=== PATIENT | female | born 1935 | race Caucasian/White ===

== ENCOUNTER 2017-06-17 07:15 | Day surgery (SDC) | payer OTHER, MEDICARE, MEDICAID ==
[~2017-06-17] VITALS: Ht 167.6 cm; Wt 68.5 kg
[2017-06-17 08:13] VITALS: BP 141/52; PULSE 82; RESP 20; TEMP 97.8; O2SAT 97
[2017-06-17] MEDS ORDERED: CLOP75TA PO (08:18)
[2017-06-17] MEDS ORDERED: PENT400T PO (08:18)
[2017-06-17] MEDS ORDERED: VITA2000 PO (08:18)
[2017-06-17] MEDS ORDERED: METF500T PO (08:18)
[2017-06-17] MEDS ORDERED: FENO160T PO (08:18)
[2017-06-17] MEDS ORDERED: RAMI10CA PO (08:18)
[2017-06-17] MEDS ORDERED: ROSU1TAB10 PO (08:18)
[2017-06-17] MEDS ORDERED: VITA100021 SL (08:18)
--- NOTE | 2017-06-17 08:24 | EKG ---
Date Performed: 06/17/2017 Time Performed: 07:58:56 PTAGE: 81 years EKG: Sinus rhythm NONSPECIFIC T-WAVE ABNORMALITY BORDERLINE ECG NO PREVIOUS TRACING DOCTOR: Darrius Bragg Interpretating Date/Time 06/17/2017 08:24:32
[2017-06-17] MEDS ORDERED: LACTATED RINGER'S 1000 ML IV PRN (08:30)
[2017-06-17] MEDS ORDERED: CHLORHEXIDINE GLUCONATE 4% SOLN 120 ML BTL TOPICAL SCH (08:30)
[2017-06-17] MEDS ORDERED: POVIDONE IODINE 5% (ANTISEPSIS KIT) 4 APPLICATIONS EACH NARE PRN (08:30)
[2017-06-17] MEDS ORDERED: CHLORHEXIDINE GLUCONATE 2 % 1 PACK (2 CLOTHS) TOPICAL PRN (08:30)
[2017-06-17] MEDS ORDERED: METOPROLOL TARTRATE 25 MG TAB PO PRN (08:30)
[2017-06-17] MEDS ORDERED: SODIUM CHLORID 0.9% 500 ML IV PRN (08:30)
== END 2017-06-17 09:14 | disposition home or self-care (01) ==
LOC: UNDOADMIN 07:15 → HSDC 07:15 → HSDI 07:15 → HSDC 09:14 → UNDODISIN 09:14 → EDSTATUS 10:00
PROVIDERS: ATTEND Orthopaedic Surgery Orthopaedic Surgery of the Spine
DX: Z53.09 Procedure and treatment not carried out because of other contraindication (principal); Z01.810 Encounter for preprocedural cardiovascular examination
CPT/HCPCS: 93005; G0463; 99211

== ENCOUNTER 2017-06-19 10:17 | Inpatient (IN) | payer OTHER, MEDICAID, MEDICARE ==
[~2017-06-19] VITALS: Ht 167.6 cm; Wt 65.8 kg
[~2017-06-19 10:17] MED LIST: CLOP75TA PO; FENO160T PO; METF500T PO; PENT400T PO; RAMI10CA PO; ROSU1TAB10 PO; VITA100021 SL; VITA2000 PO
[2017-06-19] MEDS ORDERED: POVIDONE IODINE 5% (ANTISEPSIS KIT) 4 APPLICATIONS EACH NARE PRN (11:30)
[2017-06-19] MEDS ORDERED: LACTATED RINGER'S 1000 ML IV PRN (11:30)
[2017-06-19] MEDS ORDERED: METOPROLOL TARTRATE 25 MG TAB PO PRN (11:30)
[2017-06-19] MEDS ORDERED: CHLORHEXIDINE GLUCONATE 2 % 1 PACK (2 CLOTHS) TOPICAL PRN (11:30)
[2017-06-19] MEDS ORDERED: SODIUM CHLORID 0.9% 500 ML IV PRN (11:30)
[2017-06-19] MEDS ORDERED: CHLORHEXIDINE GLUCONATE 4% SOLN 120 ML BTL TOPICAL SCH (11:30)
[2017-06-19] MEDS ORDERED: LIDOCAINE HCL 1% PF 5 ML SYRINGE OTHER ONE (12:00)
[2017-06-19] MEDS ORDERED: LABETALOL HCL 100 MG/20 ML VIAL IV ONE (12:00)
[2017-06-19] MEDS ORDERED: ONDANSETRON HCL 4 MG/2 ML VIAL IV ONE (12:00)
[2017-06-19] MEDS ORDERED: PROPOFOL 200 MG/20 ML AMP IV ONE (12:00)
[2017-06-19] MEDS ORDERED: GENTAMICIN SULFATE 80 MG/2 ML VIAL ONE (12:52)
[2017-06-19] MEDS ORDERED: VANCOMYCIN HCL 1000 MG VIAL ONE (13:55)
[2017-06-19 14:09] LABS: AUTOMATED NEUTROPHIL # 6.1 TH/MM3 (1.8-7.7); BASOPHIL # 0.1 TH/MM3 (0-0.2); BASOPHIL % 0.9 % (0.0-2.0); EOSINOPHIL # 0.1 TH/MM3 (0-0.4); EOSINOPHIL % 1.6 % (0.0-4.0); HEMATOCRIT 34.3 % (35.0-46.0); HEMOGLOBIN 11.2 GM/DL (11.6-15.3); LYMPH % 21.2 % (9.0-44.0); LYMPHOCYTE # 1.8 TH/MM3 (1.0-4.8); MEAN CELL VOLUME 79.1 FL (80.0-100.0); MEAN CORPUSCULAR HEMOGLOBIN 25.7 PG (27.0-34.0); MEAN CORPUSCULAR HGB CONC 32.6 % (32.0-36.0); MEAN PLATELET VOLUME 7.5 FL (7.0-11.0); MONO % 6.3 % (0.0-8.0); MONOCYTE # 0.5 TH/MM3 (0-0.9); PLATELET COUNT 356 TH/MM3 (150-450); RED BLOOD COUNT 4.34 MIL/MM3 (4.00-5.30); WHITE BLOOD COUNT 8.7 TH/MM3 (4.0-11.0)
[2017-06-19] MEDS ORDERED: PIPERACIL-TAZO 3.375 GM PREMIX 50 ML IV ONE (14:15)
[2017-06-19 14:29] LABS: CALCIUM 9.8 MG/DL (8.5-10.1); CREATININE 0.9 MG/DL (0.50-1.00)
--- NOTE | 2017-06-19 15:25 | HHI.PR ---
cc: Sana Graves MD Immediate Post Op Note Procedure Date: June 19, 2017 Pre Op Diagnosis: Right BKA infection with wound dehiscence Post Op Diagnosis: same Surgeon: Sana Graves Boat Repairer(s): Estela Varela Procedure: Right below-knee amputation irrigation and debridement Right below-knee amputation revision Application of incisional vac Complications: None Specimen(s) removed: Multiple cultures and specimens sent to microbiology and pathology Estimated blood loss: 50 cc Anesthesia: General Drains: Hemovac, Other (Incisional vac) IVF Patient to: PACU Patient Condition: Good Implant/Devices: SEE IMPLANT LOG (if applicable) Date/Time of Procedure: SEE SURGICAL CARE RECORD Sana Graves MD June 19, 2017 15:25
[2017-06-19] MEDS ORDERED: DO NOT ADM ANY ANTICOAGULANT DRUGS PRN (15:27)
[2017-06-19] MEDS ORDERED: ONDANSETRON HCL 4 MG/2 ML VIAL IVP PRN (15:30)
[2017-06-19] MEDS ORDERED: Post-op Orders (for Pharmacy) XX ONE (15:30)
[2017-06-19] MEDS ORDERED: diphenhydrAMINE HCL 25 MG CAP PO PRN (15:30)
[2017-06-19] MEDS ORDERED: LACTULOSE SYRUP 20 GM/30 ML CUP PO PRN (15:30)
[2017-06-19] MEDS ORDERED: SODIUM CHLORIDE 0.9% FLUSH 10 ML FLUSH IV FLUSH PRN (15:30)
[2017-06-19] MEDS ORDERED: MAGNESIUM HYDROXIDE SUSP 30 ML CUP PO PRN (15:30)
[2017-06-19] MEDS ORDERED: BISACODYL 10 MG SUPP RECTAL PRN (15:30)
[2017-06-19] MEDS ORDERED: Vancomycin Consult Pharmacy 1 EA OTHER SCH (15:30)
[2017-06-19] MEDS ORDERED: MORPHINE SULFATE 4 MG/ML INJ IV PUSH PRN (15:30)
[2017-06-19] MEDS ORDERED: SENNOSIDES 8.6 MG TAB PO PRN (15:30)
[2017-06-19] MEDS ORDERED: MORPHINE SULFATE 4 MG/ML INJ ONE (15:40)
[2017-06-19] MEDS ORDERED: *morphine SULFATE 4 MG/ML PERIprocedure ONLY ONE ×3 (15:42→15:59)
[2017-06-19] MEDS ORDERED: KETOROLAC TROMETHAMINE 30 MG/ML (IVP) VIAL ONE (16:09)
[2017-06-19] MEDS ORDERED: ACETAMINOPHEN 1000 MG/100 ML 100 ML IV ONE (16:20)
[2017-06-19] MEDS ORDERED: *LABETALOL HCL 100 MG/20 ML VIAL PERIprocedural Use ONLY ONE ×2 (16:33→17:19)
[2017-06-19] MEDS ORDERED: *HYDROmorphone PF 0.5 MG/0.5 ML PERIprocedure ONLY ONE ×2 (16:43→17:09)
[2017-06-19 18:00] VITALS: BP 140/59; PULSE 75; RESP 18; TEMP 97.8; O2SAT 98
[2017-06-19] MEDS ORDERED: HYDR-3366 PO (18:54)
[2017-06-19 20:21] VITALS: O2SAT 98
[2017-06-19 20:40] VITALS: BP 151/64; PULSE 71; RESP 17; TEMP 97.4; O2SAT 100
[2017-06-19] MEDS: DOCUSATE SODIUM 50 MG/SENNA 8.6 MG TAB PO SCH (21:00)
[2017-06-19] MEDS: SODIUM CHLORIDE 0.9% FLUSH 10 ML FLUSH IV FLUSH SCH (21:20)
[2017-06-20 00:30] VITALS: BP 180/75; PULSE 99; RESP 18; TEMP 99.8; O2SAT 99
[2017-06-20 01:40] VITALS: BP 176/79
[2017-06-20] MEDS ORDERED: cloNIDine HCL 0.1 MG TAB PO ONE (02:15)
[2017-06-20] MEDS: ENOXAPARIN SODIUM 40 MG/0.4 ML SYRINGE SQ SCH (03:53)
[2017-06-20 04:00] LABS: HEMATOCRIT 31.2 % (35.0-46.0); HEMOGLOBIN 10.1 GM/DL (11.6-15.3)
[2017-06-20 04:55] VITALS: BP 157/67; PULSE 95; RESP 20; TEMP 100.2; O2SAT 97
[2017-06-20] MEDS: MULTIVITAMINS/MINERALS THERAPEUTIC TAB PO SCH (08:49)
[2017-06-20] MEDS: DOCUSATE SODIUM 50 MG/SENNA 8.6 MG TAB PO SCH ×2 (08:49→22:09)
[2017-06-20] MEDS: SODIUM CHLORIDE 0.9% FLUSH 10 ML FLUSH IV FLUSH SCH ×2 (08:51→22:09)
--- NOTE | 2017-06-20 10:13 | PD.CONS ---
HPI Service [facility] Consult Requested By Dr Graves Reason for Consult Medical management. Primary Care Physician Non-Staff Diagnoses: History of Present Illness This is an 81-year-old white female with past medical history of peripheral vascular disease, diabetes, hypertension, hyperlipidemia, COPD. 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 The patient subsequently developed dehiscence of the wound and underwent incision and debridement on 06/19. As per medical records the patient developed MRSA at the time on those were cultures. Apparently attempts were made to get her on IV antibiotics as an outpatient but that was not initiated. The patient was noted to have a nonhealing wound with drainage continued and she was admitted to the hospital, and there went incision and drainage on 05/20 and culture was taken again. The right below the knee amputation was revised and wound incisional VAC was applied to the wound. Patient was noted to have a temp of 100.2, prior to that the patient has been a febrile. The patient is awake and alert, provides adequate history however seems to be a poor historian. Patient completed a course of Bactrim approximately 3 weeks ago for a wound on the lateral aspect of the left foot. The patient is being followed by barrel line operator to put her on Bactrim. Apparently the patient's son noticed that there was a blister that appeared at the base of the foot near the third toe, dorsal aspect. The patient was noted to have some necrosis of the area when the drainage was occurring and some necrotic muscle was debrided as well. Review of Systems As per HPI,other systems reviewed by me and negative. Past Family Social History Allergies: Coded Allergies: Penicillins (Verified Allergy, Severe, RASH, ITCHING, 06/18/17) adhesive tape (Verified Allergy, Severe, Blisters, 06/19/17) nabumetone (Verified Allergy, Severe, Rash, 06/18/17) oxycodone (Verified Allergy, Severe, AGITATION, COMBATIVE, 06/18/17) tramadol (Verified Allergy, Severe, COMBATIVE, 06/18/17) Uncoded Allergies: PLASTIC TAPE (Allergy, Severe, BLISTERS, 06/17/17) Past Medical History 1. Peripheral vascular disease 2. HTN 3. HLD 4. DM type 2 5. COPD Past Surgical History 1. SP Right BKA. 2. Status post right femoropopliteal bypass and status post left iliac stent. Reported Medications Reported Meds & Active Scripts Active Reported Mio (Hydrocodone-Acetaminophen) 10-325 Mg Tab 1 Tab PO Q4H PRN Vitamin D3 (Cholecalciferol) 2,000 Unit Cap 2,000 Units PO TU. AND FRI. Vitamin B-12 (Cyanocobalamin) 1,000 Mcg Subl 2,500 Mcg SL EVERY OTHER DAY Rosuvastatin (Rosuvastatin Calcium) 40 Mg Tab 40 Mg PO DAILY Fenofibrate 160 Mg Tab 160 Mg PO DAILY Pentoxifylline ER (Pentoxifylline) 400 Mg Tab 400 Mg PO BID Metformin (Metformin HCl) 500 Mg Tab 500 Mg PO DAILY Clopidogrel (Clopidogrel Bisulfate) 75 Mg Tab 75 Mg PO DAILY Ramipril 10 Mg Cap 20 Mg PO DAILY Active Ordered Medications Current Medications Medications (Trade) Dose Ordered Sig/Yeison Route Start Time Stop Time Status Last Admin Lactated Ringer's 1,000 ml @ 30 mls/hr Q24H PRN IV 06/19/17 11:30 06/22/17 11:29 06/19/17 11:15 Sodium Chloride 500 ml @ 30 mls/hr [id number] PRN IV 06/19/17 11:30 06/22/17 11:29 (Lopressor) 25 mg REVENUE ANALYST PRN PO 06/19/17 11:30 06/22/17 11:29 (Betadine 5% Antisepsis Kit) 1 applic REVENUE ANALYST PRN EACH NARE 06/19/17 11:30 06/22/17 11:29 06/19/17 11:20 (Chlorhexidine 2% Cloth) 3 pack REVENUE ANALYST PRN TOPICAL 06/19/17 11:30 06/22/17 11:29 06/19/17 11:00 (Hibiclens 4% Top Soln) 1 applic ONCE TOPICAL 06/19/17 11:30 06/22/17 11:29 06/19/17 11:15 (NS Flush) 2 ml UNSCH PRN IV FLUSH 06/19/17 15:30 (NS Flush) 2 ml BID IV FLUSH 06/19/17 21:00 06/20/17 08:51 (Lovenox Inj) 40 mg Q24H SQ 06/20/17 03:30 06/20/17 03:53 Pharmacy Profile Note 0 ml @ 0 mls/hr UNSCH OTHER 06/19/17 15:30 (Morphine Inj) 2 mg Q4H PRN IV PUSH 06/19/17 15:30 (Zofran Inj) 4 mg Q4H PRN IVP 06/19/17 15:30 (Theragran M Tab) 1 tab DAILY PO 06/20/17 09:00 (Benadryl) 25 mg Q6H PRN PO 06/19/17 15:30 (Sona-Colace) 1 tab BID PO 06/19/17 21:00 (Milk Of Magnesia Liq) 30 ml Q12H PRN PO 06/19/17 15:30 (Senokot) 17.2 mg Q12H PRN PO 06/19/17 15:30 (Dulcolax Supp) 10 mg DAILY PRN RECTAL 06/19/17 15:30 (Lactulose Liq) 30 ml DAILY PRN PO 06/19/17 15:30 Vancomycin HCl 1000 mg/Sodium Chloride 250 ml @ 250 mls/hr Q24H IV 06/20/17 14:00 06/20/17 15:08 ([facility] Ordered Lab Info) SPECIFIC LAB TO BE DRAWN:VANCOMYCIN TROUGH DATE TO... ONCE ONCE .XX 06/22/17 13:45 06/22/17 13:46 (Vitamin D3) 2,000 units DAILY PO 06/21/17 09:00 (Vitamin B12) 2,500 mcg DAILY PO 06/21/17 09:00 (TRENtal SR) 400 mg BID PO 06/20/17 21:00 (Tricor) 145 mg DAILY PO 06/21/17 09:00 (Altace) 20 mg DAILY PO 06/20/17 11:00 06/20/17 11:14 (Lipitor) 80 mg DAILY PO 06/20/17 11:00 06/20/17 11:15 (Mio 5-325 Mg) 2 tab Q6H PRN PO 06/20/17 11:15 06/20/17 12:36 Family History The patient denies any diabetes or heart disease in her family. Social History Patient smokes half a pack per day. Denies alcohol use. Denies illicit drug use. 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 Physical Exam Vital Signs Vital Signs Date Time Temp Pulse Resp B/P (MAP) Pulse Ox O2 Delivery O2 Flow Rate FiO2 06/20/17 04:55 100.2 95 20 157/67 (97) 97 06/20/17 01:40 176/79 (111) 06/20/17 00:30 99.8 99 18 180/75 (110) 99 06/19/17 20:40 97.4 71 17 151/64 (93) 100 06/19/17 20:21 98 Nasal Cannula 2.00 06/19/17 18:00 97.8 75 18 140/59 (86) 98 06/19/17 17:30 98.1 73 14 173/72 (105) 97 Nasal Cannula 2 06/19/17 17:15 74 16 141/64 (89) 97 Nasal Cannula 2 06/19/17 17:00 75 16 187/78 (114) 98 Nasal Cannula 2 06/19/17 16:45 80 22 188/80 (116) 96 Nasal Cannula 2 06/19/17 16:30 80 15 204/78 (120) 99 Nasal Cannula 2 06/19/17 16:15 83 20 196/83 (120) 98 Nasal Cannula 2 06/19/17 16:00 79 14 178/77 (110) 98 Nasal Cannula 2 06/19/17 15:45 78 16 177/74 (108) 98 Nasal Cannula 2 06/19/17 15:30 75 16 161/69 (99) 98 Nasal Cannula 2 06/19/17 15:28 98.3 76 15 186/72 (110) 98 Nasal Cannula 2 06/19/17 11:12 98.8 88 20 141/57 (85) 98 Physical Exam GENERAL: This is a well-nourished, well-developed patient, in no apparent distress. SKIN: No rashes, ecchymoses or lesions. Cool and dry. HEAD: Atraumatic. Normocephalic. No temporal or scalp tenderness. EYES: Pupils equal round and reactive. Extraocular motions intact. No scleral icterus. No injection or drainage. ENT: Nose without bleeding, purulent drainage or septal hematoma. Throat without erythema, tonsillar hypertrophy or exudate. Uvula midline. Airway patent. NECK: Trachea midline. No JVD or lymphadenopathy. Supple, nontender, no meningeal signs. CARDIOVASCULAR: Regular rate and rhythm without murmurs, gallops, or rubs. RESPIRATORY: Clear to auscultation. Breath sounds equal bilaterally. No wheezes , rales, or rhonchi. GASTROINTESTINAL: Abdomen soft, non-tender, nondistended. No hepato-splenomegaly , or palpable masses. No guarding. MUSCULOSKELETAL: Right BKA with wound vac in place. NEUROLOGICAL: Awake and alert. Cranial nerves II through XII intact. Motor and sensory grossly within normal limits. Five out of 5 muscle strength in all muscle groups. Normal speech. Laboratory Laboratory Tests Test 06/19/17 13:50 06/20/17 03:45 White Blood Count 8.7 Red Blood Count 4.34 Hemoglobin 11.2 10.1 Hematocrit 34.3 31.2 Mean Corpuscular Volume 79.1 Mean Corpuscular Hemoglobin 25.7 Mean Corpuscular Hemoglobin Concent 32.6 Red Cell Distribution Width 16.0 Platelet Count 356 Mean Platelet Volume 7.5 Neutrophils (%) (Auto) 70.0 Lymphocytes (%) (Auto) 21.2 Monocytes (%) (Auto) 6.3 Eosinophils (%) (Auto) 1.6 Basophils (%) (Auto) 0.9 Neutrophils # (Auto) 6.1 Lymphocytes # (Auto) 1.8 Monocytes # (Auto) 0.5 Eosinophils # (Auto) 0.1 Basophils # (Auto) 0.1 CBC Comment DIFF FINAL Differential Comment Blood Urea Nitrogen 22 Creatinine 0.90 Random Glucose 125 Calcium Level 9.8 Sodium Level 139 Potassium Level 4.2 Chloride Level 105 Carbon Dioxide Level 27.0 Anion Gap 7 Estimat Glomerular Filtration Rate 60 Date/Time Source Procedure Growth Status 06/19/17 14:10 Wound Leg Fungal Smear - Final NO FUNGAL ELEMENTS SEEN. Resulted 06/19/17 14:10 Wound Leg Fungal Culture Pending Resulted Result Diagram: 06/20/17 4945 06/19/17 7230 Assessment and Plan Problem List: (1) Amputation stump infection ICD Code: T87.40 - Infection of amputation stump, unspecified extremity Plan: The patient has a right BKA infection with wound dehiscence. The patient status post right ujjfe-wzy-vlrl amputation irrigation and debridement, right below the knee amputation revision and application of incisional VAC. ID consulted. Continue IV antibiotics as per infectious disease. The patient currently on IV vancomycin. Pertinent cultures: The patient is growing MRSA on wound culture. (2) Diabetes ICD Code: E11.9 - Type 2 diabetes mellitus without complications Plan: Placed on SSI with insulin NovoLog. Monitor Accu-Cheks. Hold metformin while patient hospitalized. Check hemoglobin A1c if this is has not been done within the last 3 months. (3) HTN (hypertension) ICD Code: I10 - Essential (primary) hypertension Plan: Patient initially severely elevated. Continue outpatient home medications which include ramipril 20 mg p.o. daily. Monitor vital signs. (4) Hyperlipidemia ICD Code: E78.5 - Hyperlipidemia, unspecified Plan: Continue fenofibrate and rosuvastatin. (5) PVD (peripheral vascular disease) ICD Code: I73.9 - Peripheral vascular disease, unspecified Plan: On pentoxifylline. Continue Plavix. (6) Sepsis ICD Code: A41.9 - Sepsis, unspecified organism Plan: Patient meets sepsis criteria with low-grade fever and heart rate more than 90. Continue IV antibiotics as per ID recommendations. Assessment and Plan DVT prophylaxis: Lovenox subcutaneously. Discussed Condition With Patient. Problem Qualifiers (1) Diabetes: Qualified Codes: E11.52 - Type 2 diabetes mellitus with diabetic peripheral angiopathy with gangrene (2) HTN (hypertension): Qualified Codes: I10 - Essential (primary) hypertension (3) Hyperlipidemia: Qualified Codes: E78.5 - Hyperlipidemia, unspecified Waylon Roberts MD June 20, 2017 10:13
[2017-06-20] MEDS: RAMIPRIL 5 MG CAP PO SCH (11:14)
--- NOTE | 2017-06-20 11:14 | PD.ORT.PN ---
Subjective Subjective Remarks Patient resting comfortably. Refusing to take BP meds due to different color pills than at home. Objective Vitals Vital Signs Date Time Temp Pulse Resp B/P (MAP) Pulse Ox O2 Delivery O2 Flow Rate FiO2 06/20/17 04:55 100.2 95 20 157/67 (97) 97 06/20/17 01:40 176/79 (111) 06/20/17 00:30 99.8 99 18 180/75 (110) 99 06/19/17 20:40 97.4 71 17 151/64 (93) 100 06/19/17 20:21 98 Nasal Cannula 2.00 06/19/17 18:00 97.8 75 18 140/59 (86) 98 06/19/17 17:30 98.1 73 14 173/72 (105) 97 Nasal Cannula 2 06/19/17 17:15 74 16 141/64 (89) 97 Nasal Cannula 2 06/19/17 17:00 75 16 187/78 (114) 98 Nasal Cannula 2 06/19/17 16:45 80 22 188/80 (116) 96 Nasal Cannula 2 06/19/17 16:30 80 15 204/78 (120) 99 Nasal Cannula 2 06/19/17 16:15 83 20 196/83 (120) 98 Nasal Cannula 2 06/19/17 16:00 79 14 178/77 (110) 98 Nasal Cannula 2 06/19/17 15:45 78 16 177/74 (108) 98 Nasal Cannula 2 06/19/17 15:30 75 16 161/69 (99) 98 Nasal Cannula 2 06/19/17 15:28 98.3 76 15 186/72 (110) 98 Nasal Cannula 2 06/19/17 11:12 98.8 88 20 141/57 (85) 98 I/O 06/19/17 06/19/17 06/19/17 06/20/17 06/20/17 06/20/17 07:00 15:00 23:00 07:00 15:00 23:00 Intake Total 850 ml 360 ml Output Total 50 ml 0 ml Balance 800 ml 360 ml Intake Oral 0 ml 360 ml IV Total 100 ml Other 750 ml Output Drainage Total 0 ml 0 ml Estimated Blood Loss 50 ml # Voids 0 4 # Bowel Movements 0 Result Diagram: 06/20/17 0345 06/19/17 1350 Objective Remarks Awake, alert, NAD RLE: dressing in place. HV in place. Incisional vac with good seal. Assessment & Plan Assessment and Plan 81yo F POD#1 s/p R BKA I&D, revision amputation, placement incisional VAC 1. Dressing to remain in place until Friday. I will remove incisional VAC friday morning to assess wound 2. KI to R BKA when in bed to prevent contractures 3. ID consulted. On Vancomycin given previous MRSA wound cultures 06/09. Patient does have small wounds developing on left toes. Patient's prior authorization nurse is Dr. Alegria who reportedly does not come to [place]. 4. Lovenox for DVT ppx. Ok to restart Plavix if medicine feels appropriate 5. Mobilize as tolerated with assistance Sana Graves MD June 20, 2017 11:14
[2017-06-20] MEDS: ATORVASTATIN 80 MG TAB PO SCH (11:15)
[2017-06-20 12:00] VITALS: BP 120/53; PULSE 79; RESP 18; TEMP 98.1; O2SAT 96
--- NOTE | 2017-06-20 12:26 | MB ---
cc: William Holguin MD DATE: 06/20/2017 REQUESTING PHYSICIAN: Dr. Sana Graves. REASON FOR VISIT: Right BKA infected wound. HISTORY OF PRESENT ILLNESS: This is an 81-year-old white female who has a history of right below the knee amputation because of gangrene in 02/2017. The patient subsequently developed dehiscence of the wound and underwent incision and debridement on 06/09 and a culture was taken and the culture showed MRSA. Attempts were made to get her on IV antibiotics as outpatient and this was not yet initiated. She was noted to have nonhealing wound with drainage continue and she was admitted to the hospital and she underwent I and D on 05/20 and a culture was taken as well. The right below the knee amputation was revised and wound incisional VAC was applied to the wound. The patient had a temperature of 100.2 degrees this morning. Prior to that, she was afebrile. Her white count is normal at 8.7. The Gram stain from the wound yesterday has gram-positive cocci in pairs. The patient is awake and alert. She is able to provide adequate history. Her son is also at bedside and he assisted in information on her previous care. The patient completed a course of Bactrim approximately 3 weeks ago for a wound on the lateral aspect of the left foot. She is followed by a die cutter diamond who put her on the Bactrim for 2 weeks. Her son noticed that there was a blister that appeared at the base of the foot near the third toe, dorsal aspect. The patient was noted to have some necrosis at the area where the drainage was occurring and some necrotic muscle was debrided as well. PAST MEDICAL HISTORY: Hypercholesterolemia, peripheral vascular disease, COPD, and diabetes mellitus type 2. PAST SURGICAL HISTORY: Status post right fem-pop bypass and status post left iliac stent. ALLERGIES: 1. TRAMADOL. 2. OXYCODONE. 3. NABUMETONE. 4. PENICILLIN. 5. ADHESIVE TAPE. 6. PLASTIC TAPE. The patient's record notes that she is allergic to acetaminophen. however, the patient denies allergy to acetaminophen. MEDICATIONS: 1. Vancomycin 2. Pentoxifylline, 3. Tricor. 4. Vitamin B12. 5. Vitamin D3. 6. Lipitor. 7. Altace. 8. Theragran. 9. Lovenox. 10. Sona-Colace. SOCIAL HISTORY: The patient smokes about 10 cigarettes a day. Denies alcohol use. Denies substance abuse. 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 FAMILY HISTORY: Noncontributory. REVIEW OF SYSTEMS: Significant for mild pain in the right and leg. Otherwise, negative on a 10-point review. PHYSICAL EXAMINATION: GENERAL: She is a well-developed female who is in no acute distress. She is awake and alert and oriented. VITAL SIGNS: Temperature 100.2, blood pressure 157/67, respirations 20, heart rate 95. HEENT: Head is atraumatic. Extraocular movements grossly intact. Pupils reactive to light. No icterus. Oropharynx: Moist mucosa. No visible lesions. NECK: Supple, no adenopathy. LUNGS: Clear breath sounds. HEART: Regular S1, S2. I/ systolic ejection murmur at the left sternal border. ABDOMEN: Bowel sounds present, soft, nontender. RECTAL: Not performed. EXTREMITIES: The right leg is wrapped in a surgical dressing. There is serosanguineous drainage coming via the Hemovac. The left foot has healed ulcerations at the lateral aspect of the foot near the fifth toe and also at the dorsal aspect of the third toe. There is no erythema and the skin is dry. SKIN: No diffuse rash. NEUROLOGIC: Nonfocal. PSYCHIATRIC: The patient is calm and pleasant and cooperative. She appears a little fidgety. LABORATORY DATA: WBC 8.7, platelets 356, hemoglobin 10.1. Creatinine 0.90. Estimated GFR 60. Sodium 139. IMPRESSION: 1. Infected wound of the right kywcw-tkw-fahz stump. Recent culture with methicillin-resistant Staphylococcus aureus. 2. The patient is status post incision and drainage and revision of the right sartv-dkim-ccdjtlngth stump. New culture pending. 3. Low grade fever. 4. Diabetes mellitus. RECOMMENDATIONS: 1. Continue vancomycin. 2. Monitor the wound culture obtained on 06/19/2017 to determine if antibiotic needs to be adjusted. 3. Pharmacy to continue managing the vancomycin. 4. Remove acetaminophen as an allergy, since the patient states that she is not allergic to that medication and therefore she should be able to receive oxycodone. 5. Monitor the temperature. The plan is to observe the patient in the hospital over the weekend and determine whether or not she will need continuation of the VAC. She will require a course of IV antibiotics. If the culture has MRSA, we will certainly need to continue the vancomycin and monitor response. Because of the problems with nonhealing, she will require the vancomycin for approximately 4 weeks treatment. Thank you for this consultation. I will monitor about her progress and will make further recommendations upon followup. MD KASSIE Tempel/ROBERT , 11:43 AM , 12:26 PM BETO
[2017-06-20] MEDS: ACETAMINOPHEN/HYDROcodone 325 MG/5 MG TAB PO PRN (12:36)
[2017-06-20] MEDS: VANCOMYCIN 1,000 MG/NS 250 ML IV SCH ×2 (15:08)
[2017-06-20 20:00] VITALS: BP 132/60; PULSE 76; RESP 18; TEMP 97.8; O2SAT 95
[2017-06-20] MEDS: PENTOXIFYLLINE 400 MG CONTROLLED RELEASE TAB PO SCH (22:09)
[2017-06-21] VITALS (7 sets, daily range): BP systolic 139–170; BP diastolic 53–74; PULSE 88–99; RESP 16–18; TEMP 97.7–99.3; O2SAT 91–94
[2017-06-21] MEDS: ENOXAPARIN SODIUM 40 MG/0.4 ML SYRINGE SQ SCH (03:30)
[2017-06-21 04:22] LABS: AUTOMATED NEUTROPHIL # 9.2 TH/MM3 (1.8-7.7); BASOPHIL % 0.4 % (0.0-2.0); EOSINOPHIL % 0.1 % (0.0-4.0); HEMATOCRIT 30.4 % (35.0-46.0); HEMOGLOBIN 9.9 GM/DL (11.6-15.3); LYMPH % 6.2 % (9.0-44.0); LYMPHOCYTE # 0.6 TH/MM3 (1.0-4.8); MEAN CELL VOLUME 78.3 FL (80.0-100.0); MEAN CORPUSCULAR HEMOGLOBIN 25.5 PG (27.0-34.0); MEAN CORPUSCULAR HGB CONC 32.6 % (32.0-36.0); MEAN PLATELET VOLUME 7.7 FL (7.0-11.0); MONO % 3.5 % (0.0-8.0); MONOCYTE # 0.4 TH/MM3 (0-0.9); NEUT % 89.8 % (16.0-70.0); PLATELET COUNT 273 TH/MM3 (150-450); RED BLOOD COUNT 3.89 MIL/MM3 (4.00-5.30); RED CELL DISTRIBUTION WIDTH 15.7 % (11.6-17.2); WHITE BLOOD COUNT 10.2 TH/MM3 (4.0-11.0)
[2017-06-21 04:37] LABS: ALBUMIN 2.8 GM/DL (3.4-5.0); ALKALINE PHOSPHATASE 71 U/L (45-117); ALT (GPT) 37 U/L (10-53); AST (GOT) 53 U/L (15-37); BICARBONATE 26.1 MEQ/L (21.0-32.0); BLOOD UREA NITROGEN 35 MG/DL (7-18); CALCIUM 9.3 MG/DL (8.5-10.1); CHLORIDE 102 MEQ/L (98-107); CREATININE 1.16 MG/DL (0.50-1.00); GLOMERULAR FILTRATION RATE 45 ML/MIN (>89); GLUCOSE,RANDOM 131 MG/DL (74-106); MAGNESIUM 1.7 MG/DL (1.5-2.5); PHOSPHORUS 2.9 MG/DL (2.5-4.9); SODIUM (NA) 138 MEQ/L (136-145); TOTAL BILIRUBIN ADULT 0.3 MG/DL (0.2-1.0); TOTAL PROTEIN 6.7 GM/DL (6.4-8.2)
--- NOTE | 2017-06-21 08:00 | PD.ORT.PN ---
Subjective Subjective Remarks POD 2 s/p revision right BKA patient complains that vac pump is uncomfortable Objective Vitals Vital Signs Date Time Temp Pulse Resp B/P (MAP) Pulse Ox O2 Delivery O2 Flow Rate FiO2 06/21/17 04:00 97.8 90 18 166/74 (104) 94 06/21/17 00:00 98.4 88 18 144/65 (91) 94 06/20/17 20:00 97.8 76 18 132/60 (84) 95 06/20/17 13:36 17 06/20/17 12:00 98.1 79 18 120/53 (75) 96 I/O 06/20/17 06/20/17 06/20/17 06/21/17 06/21/17 06/21/17 07:00 15:00 23:00 07:00 15:00 23:00 Intake Total 360 ml 240 ml Output Total 0 ml Balance 360 ml 240 ml Intake Oral 360 ml 240 ml Output Drainage Total 0 ml # Voids 4 5 # Bowel Movements 0 1 Result Diagram: 06/21/17 0400 06/21/17 0400 Objective Remarks Awake, alert, NAD RLE: dressing in place. vac in place. Incisional vac with good seal. knee brace at bedside. knee contracture developing Assessment & Plan Assessment and Plan 81yo F POD#2 s/p R BKA I&D, revision amputation, placement incisional VAC 1. Dressing to remain in place until Friday. Dr Graves will remove incisional VAC friday morning to assess wound 2. CKS to R BKA when in bed to prevent contractures --> patient not wearing and needs to be reapplied 3. ID consulted. On Vancomycin given previous MRSA wound cultures 06/09. Patient does have small wounds developing on left toes. Patient's chief of party is Dr. Alegria who reportedly does not come to [place]. 4. Lovenox for DVT ppx. Ok to restart Plavix if medicine feels appropriate 5. Mobilize as tolerated with assistance 6. DC drain today Ochoa Irving/Program Director Group Work DOMENIC June 21, 2017 07:59
[2017-06-21] MEDS: RAMIPRIL 5 MG CAP PO SCH (09:59)
[2017-06-21] MEDS: CYANOCOBALAMIN 1,000 MCG TAB PO SCH (09:59)
[2017-06-21] MEDS: CHOLECALCIFEROL (VIT D3) 1000 UNIT TAB PO SCH (10:00)
[2017-06-21] MEDS: ATORVASTATIN 80 MG TAB PO SCH (10:01)
[2017-06-21] MEDS: DOCUSATE SODIUM 50 MG/SENNA 8.6 MG TAB PO SCH ×2 (10:01→20:25)
[2017-06-21] MEDS: FENOFIBRATE 145 MG TAB PO SCH (10:01)
[2017-06-21] MEDS: MULTIVITAMINS/MINERALS THERAPEUTIC TAB PO SCH (10:01)
[2017-06-21] MEDS: SODIUM CHLORIDE 0.9% FLUSH 10 ML FLUSH IV FLUSH SCH ×2 (10:52→20:25)
[2017-06-21] MEDS: PENTOXIFYLLINE 400 MG CONTROLLED RELEASE TAB PO SCH ×2 (10:52→20:25)
[2017-06-21] MEDS: VANCOMYCIN 1,000 MG/NS 250 ML IV SCH ×2 (14:44)
[2017-06-21] MEDS ORDERED: PILL SPLITTER OTHER PRN (15:00)
--- NOTE | 2017-06-21 15:04 | HHI.PR ---
Subjective Remarks Pain controlled, denies diarrhea denies cp/sob Objective Vitals Vital Signs Date Time Temp Pulse Resp B/P (MAP) Pulse Ox O2 Delivery O2 Flow Rate FiO2 06/21/17 12:00 97.7 89 16 139/65 (89) 93 06/21/17 09:23 92 21 06/21/17 08:00 97.8 91 17 170/71 (104) 94 06/21/17 04:00 97.8 90 18 166/74 (104) 94 06/21/17 00:00 98.4 88 18 144/65 (91) 94 06/20/17 20:00 97.8 76 18 132/60 (84) 95 I/O 06/20/17 06/20/17 06/20/17 06/21/17 06/21/17 06/21/17 07:00 15:00 23:00 07:00 15:00 23:00 Intake Total 360 ml 240 ml Output Total 0 ml Balance 360 ml 240 ml Intake Oral 360 ml 240 ml Output Drainage Total 0 ml # Voids 4 5 # Bowel Movements 0 1 Result Diagram: 06/21/17 0400 06/21/17 0400 Objective Remarks GENERAL: This is a well-nourished, well-developed patient, in no apparent distress. SKIN: No rashes, ecchymoses or lesions. Cool and dry. HEAD: Atraumatic. Normocephalic. No temporal or scalp tenderness. EYES: Pupils equal round and reactive. Extraocular motions intact. No scleral icterus. No injection or drainage. ENT: Nose without bleeding, purulent drainage or septal hematoma. Throat without erythema, tonsillar hypertrophy or exudate. Uvula midline. Airway patent. NECK: Trachea midline. No JVD or lymphadenopathy. Supple, nontender, no meningeal signs. CARDIOVASCULAR: Regular rate and rhythm without murmurs, gallops, or rubs. RESPIRATORY: Clear to auscultation. Breath sounds equal bilaterally. No wheezes , rales, or rhonchi. GASTROINTESTINAL: Abdomen soft, non-tender, nondistended. No hepato-splenomegaly , or palpable masses. No guarding. MUSCULOSKELETAL: Right BKA with wound vac in place. NEUROLOGICAL: Awake and alert. Cranial nerves II through XII intact. Motor and sensory grossly within normal limits. Five out of 5 muscle strength in all muscle groups. Normal speech. A/P Problem List: (1) Amputation stump infection ICD Code: T87.40 - Infection of amputation stump, unspecified extremity Plan: The patient has a right BKA infection with wound dehiscence. The patient status post right eyhbw-rav-thdz amputation irrigation and debridement, right below the knee amputation revision and application of incisional VAC. ID consulted. Continue IV antibiotics as per infectious disease. The patient currently on IV vancomycin. Pertinent cultures: The patient is growing MRSA on wound culture. 06/21 Dr Graves to evaluate wound on friday. Continue IV antibiotics as per ID recommendations. (2) Diabetes ICD Code: E11.9 - Type 2 diabetes mellitus without complications Plan: Placed on SSI with insulin NovoLog. Monitor Accu-Cheks. Hold metformin while patient hospitalized. Check hemoglobin A1c if this is has not been done within the last 3 months. (3) HTN (hypertension) ICD Code: I10 - Essential (primary) hypertension Plan: Patient initially severely elevated. Continue outpatient home medications which include ramipril 20 mg p.o. daily. Monitor vital signs. (4) Hyperlipidemia ICD Code: E78.5 - Hyperlipidemia, unspecified Plan: Continue fenofibrate and rosuvastatin. (5) PVD (peripheral vascular disease) ICD Code: I73.9 - Peripheral vascular disease, unspecified Plan: On pentoxifylline. Continue Plavix. (6) Sepsis ICD Code: A41.9 - Sepsis, unspecified organism Plan: Patient meets sepsis criteria with low-grade fever and heart rate more than 90. Continue IV antibiotics as per ID recommendations. Problem Qualifiers (1) Diabetes: Qualified Codes: E11.52 - Type 2 diabetes mellitus with diabetic peripheral angiopathy with gangrene (2) HTN (hypertension): Qualified Codes: I10 - Essential (primary) hypertension (3) Hyperlipidemia: Qualified Codes: E78.5 - Hyperlipidemia, unspecified (4) Sepsis: Qualified Codes: A41.02 - Sepsis due to methicillin resistant Staphylococcus aureus Waylon Roberts MD June 21, 2017 15:04
[2017-06-21] MEDS: SODIUM CHLOR 0.9% 1000 ML INJ 1,000 ML IV SCH ×2 (17:33→23:42)
[2017-06-22] VITALS: BP 163/70; PULSE 88; RESP 16; TEMP 98.2; O2SAT 94
[2017-06-22] MEDS: ENOXAPARIN SODIUM 40 MG/0.4 ML SYRINGE SQ SCH (03:22)
[2017-06-22 08:00] VITALS: BP 159/67; PULSE 88; RESP 17; TEMP 97.7; O2SAT 95
[2017-06-22] MEDS: DOCUSATE SODIUM 50 MG/SENNA 8.6 MG TAB PO SCH ×2 (09:00→20:24)
[2017-06-22] MEDS: SODIUM CHLORIDE 0.9% FLUSH 10 ML FLUSH IV FLUSH SCH ×2 (09:00→20:24)
--- NOTE | 2017-06-22 09:35 | PD.ORT.PN ---
Subjective Subjective Remarks POD 3 s/p revision right BKA patient complains that vac pump is uncomfortable Objective Vitals Vital Signs Date Time Temp Pulse Resp B/P (MAP) Pulse Ox O2 Delivery O2 Flow Rate FiO2 06/22/17 00:00 98.2 88 16 163/70 (101) 94 06/21/17 20:00 99.1 99 16 152/53 (86) 92 06/21/17 16:00 99.3 91 16 155/69 (97) 91 06/21/17 12:00 97.7 89 16 139/65 (89) 93 I/O 06/21/17 06/21/17 06/21/17 06/22/17 06/22/17 06/22/17 07:00 15:00 23:00 07:00 15:00 23:00 Intake Total 240 ml 480 ml 800 ml Output Total 600 ml 5 ml Balance 240 ml -120 ml 795 ml Intake Oral 240 ml 480 ml IV Total 800 ml Output Urine Total 600 ml Stool Total 5 ml # Voids 5 5 # Bowel Movements 1 0 Result Diagram: 06/21/17 0400 06/21/17 0400 Objective Remarks Awake, alert, NAD RLE: dressing in place. vac in place. Incisional vac with good seal. knee brace at bedside. knee contracture developing Assessment & Plan Assessment and Plan 81yo F POD#3 s/p R BKA I&D, revision amputation, placement incisional VAC 1. Dressing to remain in place until Friday. Dr Graves will remove incisional VAC friday morning to assess wound 2. CKS to R BKA when in bed to prevent contractures --> patient not wearing and needs to be reapplied 3. ID consulted. On Vancomycin given previous MRSA wound cultures 06/09. Patient does have small wounds developing on left toes. Patient's architectural intern is Dr. Alegria who reportedly does not come to [place]. 4. Lovenox for DVT ppx. Ok to restart Plavix if medicine feels appropriate 5. Mobilize as tolerated with assistance 6. DC drain today Ochoa Irving/User Experience Architect DOMENIC June 22, 2017 09:35
[2017-06-22] MEDS: CYANOCOBALAMIN 1,000 MCG TAB PO SCH (11:14)
[2017-06-22] MEDS: CHOLECALCIFEROL (VIT D3) 1000 UNIT TAB PO SCH (11:15)
[2017-06-22] MEDS: FENOFIBRATE 145 MG TAB PO SCH (11:15)
[2017-06-22] MEDS: MULTIVITAMINS/MINERALS THERAPEUTIC TAB PO SCH (11:15)
[2017-06-22] MEDS: PENTOXIFYLLINE 400 MG CONTROLLED RELEASE TAB PO SCH ×2 (11:15→20:24)
[2017-06-22] MEDS: RAMIPRIL 5 MG CAP PO SCH (11:15)
[2017-06-22] MEDS: ATORVASTATIN 80 MG TAB PO SCH (11:17)
[2017-06-22 12:00] VITALS: BP 141/61; PULSE 90; RESP 16; TEMP 97.9; O2SAT 96
[2017-06-22 12:58] LABS: HEMATOCRIT 27.9 % (35.0-46.0); HEMOGLOBIN 9.1 GM/DL (11.6-15.3); MEAN CELL VOLUME 78.9 FL (80.0-100.0); MEAN CORPUSCULAR HEMOGLOBIN 25.7 PG (27.0-34.0); MEAN CORPUSCULAR HGB CONC 32.5 % (32.0-36.0); MEAN PLATELET VOLUME 8.1 FL (7.0-11.0); PLATELET COUNT 254 TH/MM3 (150-450); RED BLOOD COUNT 3.53 MIL/MM3 (4.00-5.30); RED CELL DISTRIBUTION WIDTH 15.2 % (11.6-17.2); WHITE BLOOD COUNT 7.4 TH/MM3 (4.0-11.0)
[2017-06-22 13:25] LABS: ALBUMIN 2.4 GM/DL (3.4-5.0); ALT (GPT) 26 U/L (10-53); AST (GOT) 34 U/L (15-37); BICARBONATE 26.8 MEQ/L (21.0-32.0); BLOOD UREA NITROGEN 23 MG/DL (7-18); CALCIUM 8.9 MG/DL (8.5-10.1); CHLORIDE 106 MEQ/L (98-107); CREATININE 0.94 MG/DL (0.50-1.00); GLOMERULAR FILTRATION RATE 57 ML/MIN (>89); GLUCOSE,RANDOM 280 MG/DL (74-106); SODIUM (NA) 141 MEQ/L (136-145)
[2017-06-22 13:25] LABS: HEMOGLOBIN A1C 7.1 % (4.3-6.0)
[2017-06-22 13:37] LABS: ALKALINE PHOSPHATASE 67 U/L (45-117); TOTAL BILIRUBIN ADULT 0.2 MG/DL (0.2-1.0); TOTAL PROTEIN 6.2 GM/DL (6.4-8.2)
[2017-06-22] MEDS ORDERED: PHARMACY ORDERED LAB ONE (13:45)
[2017-06-22 15:12] LABS: VANCOMYCIN TROUGH 9.5 MCG/ML (5.0-10.0)
[2017-06-22 16:00] VITALS: BP 166/67; PULSE 87; RESP 17; TEMP 99.3; O2SAT 94
--- NOTE | 2017-06-22 16:53 | HHI.PR ---
Subjective Remarks Blood pressure noted to be elevated into the 150s 160s systolic. The patient denies chest pain or shortness of breath. Pain controlled. Denies diarrhea, nausea, vomiting or abdominal pain. Objective Vitals Vital Signs Date Time Temp Pulse Resp B/P (MAP) Pulse Ox O2 Delivery O2 Flow Rate FiO2 06/22/17 12:00 97.9 90 16 141/61 (87) 96 06/22/17 08:00 97.7 88 17 159/67 (97) 95 06/22/17 00:00 98.2 88 16 163/70 (101) 94 06/21/17 20:00 99.1 99 16 152/53 (86) 92 I/O 06/21/17 06/21/17 06/21/17 06/22/17 06/22/17 06/22/17 07:00 15:00 23:00 07:00 15:00 23:00 Intake Total 240 ml 480 ml 800 ml Output Total 600 ml 5 ml Balance 240 ml -120 ml 795 ml Intake Oral 240 ml 480 ml IV Total 800 ml Output Urine Total 600 ml Stool Total 5 ml # Voids 5 5 # Bowel Movements 1 0 Result Diagram: 06/22/17 1230 06/22/17 1230 Objective Remarks GENERAL: This is a well-nourished, well-developed patient, in no apparent distress. SKIN: No rashes, ecchymoses or lesions. Cool and dry. HEAD: Atraumatic. Normocephalic. No temporal or scalp tenderness. EYES: Pupils equal round and reactive. Extraocular motions intact. No scleral icterus. No injection or drainage. ENT: Nose without bleeding, purulent drainage or septal hematoma. Throat without erythema, tonsillar hypertrophy or exudate. Uvula midline. Airway patent. NECK: Trachea midline. No JVD or lymphadenopathy. Supple, nontender, no meningeal signs. CARDIOVASCULAR: Regular rate and rhythm without murmurs, gallops, or rubs. RESPIRATORY: Clear to auscultation. Breath sounds equal bilaterally. No wheezes , rales, or rhonchi. GASTROINTESTINAL: Abdomen soft, non-tender, nondistended. No hepato-splenomegaly , or palpable masses. No guarding. MUSCULOSKELETAL: Right BKA with wound vac in place. NEUROLOGICAL: Awake and alert. Cranial nerves II through XII intact. Motor and sensory grossly within normal limits. Five out of 5 muscle strength in all muscle groups. Normal speech. Medications and IVs Current Medications Medications (Trade) Dose Ordered Sig/Yeison Route Start Time Stop Time Status Last Admin (NS Flush) 2 ml UNSCH PRN IV FLUSH 06/19/17 15:30 (NS Flush) 2 ml BID IV FLUSH 06/19/17 21:00 06/21/17 10:52 (Lovenox Inj) 40 mg Q24H SQ 06/20/17 03:30 06/22/17 03:22 Pharmacy Profile Note 0 ml @ 0 mls/hr UNSCH OTHER 06/19/17 15:30 (Morphine Inj) 2 mg Q4H PRN IV PUSH 06/19/17 15:30 (Zofran Inj) 4 mg Q4H PRN IVP 06/19/17 15:30 (Theragran M Tab) 1 tab DAILY PO 06/20/17 09:00 06/22/17 11:15 (Benadryl) 25 mg Q6H PRN PO 06/19/17 15:30 (Sona-Colace) 1 tab BID PO 06/19/17 21:00 06/21/17 20:25 (Milk Of Magnesia Liq) 30 ml Q12H PRN PO 06/19/17 15:30 (Senokot) 17.2 mg Q12H PRN PO 06/19/17 15:30 (Dulcolax Supp) 10 mg DAILY PRN RECTAL 06/19/17 15:30 (Lactulose Liq) 30 ml DAILY PRN PO 06/19/17 15:30 (Vitamin D3) 2,000 units DAILY PO 06/21/17 09:00 06/22/17 11:15 (Vitamin B12) 2,500 mcg DAILY PO 06/21/17 09:00 06/22/17 11:14 (TRENtal SR) 400 mg BID PO 06/20/17 21:00 06/22/17 11:15 (Tricor) 145 mg DAILY PO 06/21/17 09:00 06/22/17 11:15 (Altace) 20 mg DAILY PO 06/20/17 11:00 06/22/17 11:15 (Lipitor) 80 mg DAILY PO 06/20/17 11:00 06/22/17 11:17 ([place] 5-325 Mg) 2 tab Q6H PRN PO 06/20/17 11:15 06/20/17 12:36 Sodium Chloride 1,000 ml @ 100 mls/hr Q10H IV 06/21/17 15:00 06/21/17 23:42 (Pill Splitter) 1 ea UNSCH PRN OTHER 06/21/17 15:00 Vancomycin HCl 1250 mg/Sodium Chloride 262.5 ml @ 250 mls/hr Q24H IV 06/23/17 14:00 ([facility] [place] Info) SPECIFIC LAB TO BE MONY... ONCE ONCE .XX 06/25/17 13:45 06/25/17 13:46 A/P Problem List: (1) Amputation stump infection ICD Code: T87.40 - Infection of amputation stump, unspecified extremity Plan: The patient has a right BKA infection with wound dehiscence. The patient status post right [id number] amputation irrigation and debridement, right below the knee amputation revision and application of incisional VAC. ID consulted. Continue IV antibiotics as per infectious disease. The patient currently on IV vancomycin. Pertinent cultures: The patient is growing MRSA on wound culture. 06/22 Dr Graves to evaluate wound on friday. Continue IV antibiotics as per ID recommendations. (2) Diabetes ICD Code: E11.9 - Type 2 diabetes mellitus without complications Plan: Monitor Accu-Cheks. Hold metformin while patient hospitalized. Check hemoglobin A1c if this is has not been done within the last 3 months. 06/22 hemoglobin A1c 7.1 diabetes is fairly well controlled. However blood sugars today are very and severely elevated in the 200s. Previously blood sugars were fairly well controlled. Placed on SSI with insulin NovoLog and monitor Accu-Cheks. (3) HTN (hypertension) ICD Code: I10 - Essential (primary) hypertension Plan: Patient initially severely elevated. Continue outpatient home medications which include ramipril 20 mg p.o. daily. Monitor vital signs. 5 05/23 blood pressure elevated in the 150-160 systolic. I will start the patient on amlodipine 5 mg p.o. daily. Continue ramipril 20 mg p.o. daily. (4) Hyperlipidemia ICD Code: E78.5 - Hyperlipidemia, unspecified Plan: Continue fenofibrate and rosuvastatin. (5) PVD (peripheral vascular disease) ICD Code: I73.9 - Peripheral vascular disease, unspecified Plan: On pentoxifylline. Continue Plavix. (6) Sepsis ICD Code: A41.9 - Sepsis, unspecified organism Plan: Patient meets sepsis criteria with low-grade fever and heart rate more than 90. Continue IV antibiotics as per ID recommendations. 5 4/6 sepsis clinically resolving. Continue IV antibiotics. Assessment and Plan DVT prophylaxis: Lovenox subcutaneously. Problem Qualifiers (1) Diabetes: Qualified Codes: E11.52 - Type 2 diabetes mellitus with diabetic peripheral angiopathy with gangrene (2) HTN (hypertension): Qualified Codes: I10 - Essential (primary) hypertension (3) Hyperlipidemia: Qualified Codes: E78.5 - Hyperlipidemia, unspecified (4) Sepsis: Qualified Codes: A41.02 - Sepsis due to methicillin resistant Staphylococcus aureus Waylon Roberts MD June 22, 2017 16:53
[2017-06-22] MEDS ORDERED: DEXTROSE 50% IN WATER 50 ML VIAL(D50) IV PUSH PRN (17:00)
[2017-06-22] MEDS ORDERED: GLUCAGON 1 MG/ML VIAL OTHER PRN (17:00)
[2017-06-22] MEDS: INSULIN ASPART SUPPLEMENTAL SCALE SQ SCH ×2 (17:00→20:24)
[2017-06-22] MEDS: amLODIPine BESYLATE 5 MG TAB PO SCH (18:09)
[2017-06-22] MEDS: ACETAMINOPHEN/HYDROcodone 325 MG/5 MG TAB PO PRN (18:09)
[2017-06-22 20:00] VITALS: BP 119/56; PULSE 71; RESP 18; TEMP 98.2; O2SAT 97
[2017-06-22] MEDS: SODIUM CHLOR 0.9% 1000 ML INJ 1,000 ML IV SCH (20:25)
[2017-06-22 20:32] LABS: % SATURATION IRON PROFILE 4.4 % (20-50); IRON (FE) 13 MCG/DL (50-170); TOTAL IRON BINDING CAPACITY 297 MCG/DL (250-450)
[2017-06-22 20:34] LABS: FERRITIN 68 NG/ML (8-252)
[2017-06-23] VITALS: BP 124/57; PULSE 68; RESP 18; TEMP 97.5; O2SAT 98
[2017-06-23] MEDS: ENOXAPARIN SODIUM 40 MG/0.4 ML SYRINGE SQ SCH (03:11)
[2017-06-23] MEDS: SODIUM CHLOR 0.9% 1000 ML INJ 1,000 ML IV SCH ×2 (03:11→17:00)
--- NOTE | 2017-06-23 07:05 | PD.ORT.PN ---
Subjective Subjective Remarks Patient resting comfortably. Objective Vitals Vital Signs Date Time Temp Pulse Resp B/P (MAP) Pulse Ox O2 Delivery O2 Flow Rate FiO2 06/23/17 00:00 97.5 68 18 124/57 (79) 98 06/22/17 20:00 98.2 71 18 119/56 (77) 97 06/22/17 16:00 99.3 87 17 166/67 (100) 94 06/22/17 12:00 97.9 90 16 141/61 (87) 96 06/22/17 08:00 97.7 88 17 159/67 (97) 95 I/O 06/22/17 06/22/17 06/22/17 06/23/17 06/23/17 06/23/17 07:00 15:00 23:00 07:00 15:00 23:00 Intake Total 800 ml 700 ml 980 ml Output Total 5 ml 600 ml 1 ml Balance 795 ml 100 ml 979 ml Intake Oral 700 ml 480 ml IV Total 800 ml 500 ml Output Urine Total 600 ml 1 ml Stool Total 5 ml # Voids 5 # Bowel Movements 1 Result Diagram: 06/22/17 1230 06/22/17 1230 Objective Remarks Awake, alert, NAD RLE: dressing removed and VAC taken down. Incision intact with only mild erythema at edges. No gross fluctuance or expressible drainage. No active signs of infection. Assessment & Plan Assessment and Plan 81yo F POD#4 s/p R BKA I&D, revision amputation, placement incisional VAC 1. Dressing removed and VAC taken down. Daily dressing changes with xeroform, 4x4, ABD pad and LAINA. 2. CKS to R BKA when in bed to prevent contractures --> patient not wearing and needs to be reapplied 3. ID consulted. On Vancomycin given previous MRSA wound cultures 06/09. Patient does have small wounds developing on left toes. Patient's band aid machine operator is Dr. Alegria who reportedly does not come to [place]. Appears stable 4. Lovenox for DVT ppx. Ok to restart Plavix if medicine feels appropriate 5. Mobilize as tolerated with assistance 6. Discharge planning. Will need home health for daily dressing changes and likely IV abx. Will be ok to go home once final ID recommendations and home health arranged Sana Graves MD June 23, 2017 07:05
[2017-06-23] MEDS ORDERED: HYDR-3366 PO (07:06)
[2017-06-23 08:00] VITALS: BP 120/57; PULSE 74; RESP 18; TEMP 97.9; O2SAT 94
[2017-06-23] MEDS: INSULIN ASPART SUPPLEMENTAL SCALE SQ SCH ×3 (08:00→17:00)
[2017-06-23] MEDS: DOCUSATE SODIUM 50 MG/SENNA 8.6 MG TAB PO SCH (08:36)
[2017-06-23] MEDS: CHOLECALCIFEROL (VIT D3) 1000 UNIT TAB PO SCH (08:36)
[2017-06-23] MEDS: CYANOCOBALAMIN 1,000 MCG TAB PO SCH (08:36)
[2017-06-23] MEDS: amLODIPine BESYLATE 5 MG TAB PO SCH (08:37)
[2017-06-23] MEDS: PENTOXIFYLLINE 400 MG CONTROLLED RELEASE TAB PO SCH (08:37)
[2017-06-23] MEDS: ATORVASTATIN 80 MG TAB PO SCH (08:37)
[2017-06-23] MEDS: FENOFIBRATE 145 MG TAB PO SCH (08:37)
[2017-06-23] MEDS: MULTIVITAMINS/MINERALS THERAPEUTIC TAB PO SCH (08:37)
[2017-06-23] MEDS: RAMIPRIL 5 MG CAP PO SCH (08:37)
[2017-06-23] MEDS: SODIUM CHLORIDE 0.9% FLUSH 10 ML FLUSH IV FLUSH SCH (08:37)
--- NOTE | 2017-06-23 11:30 | HHI.FF ---
Infusion Therapy Location of Infusion Therapy: Home Health Care IV Infusion Order Patient Information Patient Weight 65.8 kg Diagnosis: (1) Amputation stump infection Diagnosis MRSA. Coded Allergies: Penicillins (Verified Allergy, Severe, RASH, ITCHING, 06/18/17) adhesive tape (Verified Allergy, Severe, Blisters, 06/19/17) nabumetone (Verified Allergy, Severe, Rash, 06/18/17) oxycodone (Verified Allergy, Severe, AGITATION, COMBATIVE, 06/18/17) tramadol (Verified Allergy, Severe, COMBATIVE, 06/18/17) Uncoded Allergies: PLASTIC TAPE (Allergy, Severe, BLISTERS, 06/17/17) Administer Medication Vancomycin q 24 hours 1250mg IV Stop Treatment: July 10, 2017 Additional Information Venous access: PICC Line Additional Instructions [x] Peripheral flush and dressing changes per protocol [x] Implanted port and central print line inspector: * Implanted port: 10 ml Normal Saline followed by 5 ml Heparin 100 units/ml Heparin flush after each use and monthly to maintain. [] May leave port accessed during therapy. [] May leave peripheral site accessed for duration of therapy. [x] If patient has SOB or respiratory distress, check oxygen saturation. If less than 90% or clinical signs of respiratory distress, administer oxygen at 2 L/min. via nasal cannula and notify physician. [x] Anaphylaxis/Reaction orders: * Stop infusion. * Keep IV line open with saline flush. * Notify physician. * Monitor vital signs every 15 minutes until symptoms resolve. * Check Oxygen saturation; Oxygen at 2 L/min. via nasal cannula if less than 90% or clinical signs of respiratory distress. * Administer diphenhydramine (Benadryl) 25 mg IV STAT, (unless patient has received as pre-med). May repeat once, if necessary. * Solu-Cortef 250 mg IVP over 30-60 seconds, use 100 mg vials for each dissolution. * Epinephrine (1mg/1 ml) 0.3 mg subcutaneously or IVP now with any signs of respiratory distress. * Check with physician for new additional pre-med orders if patient is re- challenged or re-treated. [x] May remove PICC line when treatment complete, after confirming with Physician. [x] If the patient is admitted to the hospital, the ED, or transferred via EVAC , complete transfer form including medication reconciliation order sheet. Laboratory Tests Weekly Labs: BMP, CBC w/diff Additional Information Call with vancomycin level greater than 20 or creatinine greater than 2.0 Hold vancomycin if creatinine greater than 2.[address] Holguin . Fax number [phone]. William Holguin MD June 23, 2017 11:30
--- NOTE | 2017-06-23 11:39 | HHI.IDPN ---
Note Infectious Disease Note Patient has no complaints. Sitting up on the side of the bed. She denies pain. No fever. Wound culture has MRSA. Wound vacuum drainage catheter has been removed. History of right below the knee amputation because of gangrene in 02/2017. The patient subsequently developed dehiscence of the wound and underwent incision and debridement on 06/09. and a culture was taken and the culture showed MRSA. PAST MEDICAL HISTORY: Hypercholesterolemia, peripheral vascular disease, COPD, and diabetes mellitus type 2. PAST SURGICAL HISTORY: Status post right fem-pop bypass and status post left iliac stent. ALLERGIES: 1. TRAMADOL. 2. OXYCODONE. 3. NABUMETONE. 4. PENICILLIN. 5. ADHESIVE TAPE. 6. PLASTIC TAPE. The patient's record notes that she is allergic to acetaminophen. however, the patient denies allergy to acetaminophen. MEDICATIONS: Current Medications Medications (Trade) Dose Ordered Sig/Yeison Route PRN Reason Start Time Stop Time Status Last Admin Dose Admin Sodium Chloride (NS Flush) 2 ml UNSCH PRN IV FLUSH FLUSH AFTER USING IV ACCESS 06/19/17 15:30 Sodium Chloride (NS Flush) 2 ml BID IV FLUSH 06/19/17 21:00 06/23/17 08:37 Enoxaparin Sodium (Lovenox Inj) 40 mg Q24H SQ 06/20/17 03:30 06/23/17 03:11 Pharmacy Profile Note 0 ml @ 0 mls/hr UNSCH OTHER 06/19/17 15:30 Morphine Sulfate (Morphine Inj) 2 mg Q4H PRN IV PUSH pain 06/19/17 15:30 Ondansetron HCl (Zofran Inj) 4 mg Q4H PRN IVP NAUSEA OR VOMITING 06/19/17 15:30 Multivitamins/ Minerals Therapeutic (Theragran M Tab) 1 tab DAILY PO 06/20/17 09:00 06/23/17 08:37 Diphenhydramine HCl (Benadryl) 25 mg Q6H PRN PO ITCHING 06/19/17 15:30 Senna/Docusate Sodium (Sona-Colace) 1 tab BID PO 06/19/17 21:00 06/21/17 20:25 Magnesium Hydroxide (Milk Of Magnesia Liq) 30 ml Q12H PRN PO Mild constipation 06/19/17 15:30 Sennosides (Senokot) 17.2 mg Q12H PRN PO Moderate constipation 06/19/17 15:30 Bisacodyl (Dulcolax Supp) 10 mg DAILY PRN RECTAL SEVERE CONSITIPATION 06/19/17 15:30 Lactulose (Lactulose Liq) 30 ml DAILY PRN PO SEVERE CONSITIPATION 06/19/17 15:30 Cholecalciferol (Vitamin D3) 2,000 units DAILY PO 06/21/17 09:00 06/22/17 11:15 Cyanocobalamin (Vitamin B12) 2,500 mcg DAILY PO 06/21/17 09:00 06/22/17 11:14 Pentoxifylline (TRENtal SR) 400 mg BID PO 06/20/17 21:00 06/23/17 08:37 Fenofibrate (Tricor) 145 mg DAILY PO 06/21/17 09:00 06/23/17 08:37 Ramipril (Altace) 20 mg DAILY PO 06/20/17 11:00 06/23/17 08:37 Atorvastatin Calcium (Lipitor) 80 mg DAILY PO 06/20/17 11:00 06/23/17 08:37 Acetaminophen/ Hydrocodone Bitart ([place] 5-325 Mg) 2 tab Q6H PRN PO pain 1-10 06/20/17 11:15 06/22/17 18:09 Sodium Chloride 1,000 ml @ 100 mls/hr Q10H IV 06/21/17 15:00 06/23/17 03:11 Miscellaneous (Pill Splitter) 1 ea UNSCH PRN OTHER SEE LABEL COMMENTS 06/21/17 15:00 Vancomycin HCl 1250 mg/Sodium Chloride 262.5 ml @ 250 mls/hr Q24H IV 06/23/17 14:00 Miscellaneous Information ([facility] Ordered Lab Info) SPECIFIC LAB TO BE MONY... ONCE ONCE .XX 06/25/17 13:45 06/25/17 13:46 Amlodipine Besylate (Norvasc) 5 mg DAILY PO 06/22/17 17:00 06/23/17 08:37 Dextrose (D50w (Vial) Inj) 50 ml UNSCH PRN IV PUSH HYPOGLYCEMIA-SEE COMMENTS 06/22/17 17:00 Glucagon (Glucagon Inj) 1 mg UNSCH PRN OTHER HYPOGLYCEMIA-SEE COMMENTS 06/22/17 17:00 Insulin Aspart (NovoLOG SUPPLEMENTAL SCALE) 1 ACHS SLIDING SCALE SQ 06/22/17 17:00 06/22/17 20:24 SOCIAL HISTORY: The patient smokes about 10 cigarettes a day. Denies alcohol use. Denies substance abuse. 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 Objective: Vital Signs Date Time Temp Pulse Resp B/P (MAP) Pulse Ox O2 Delivery O2 Flow Rate FiO2 06/23/17 08:00 97.9 74 18 120/57 (78) 94 06/23/17 00:00 97.5 68 18 124/57 (79) 98 06/22/17 20:00 98.2 71 18 119/56 (77) 97 06/22/17 16:00 99.3 87 17 166/67 (100) 94 06/22/17 12:00 97.9 90 16 141/61 (87) 96 Laboratory Tests Test 06/22/17 12:30 White Blood Count 7.4 TH/MM3 Red Blood Count 3.53 MIL/MM3 Hemoglobin 9.1 GM/DL Hematocrit 27.9 % Mean Corpuscular Volume 78.9 FL Mean Corpuscular Hemoglobin 25.7 PG Mean Corpuscular Hemoglobin Concent 32.5 % Red Cell Distribution Width 15.2 % Platelet Count 254 TH/MM3 Mean Platelet Volume 8.1 FL Laboratory Tests Test 06/22/17 12:30 06/22/17 14:00 Blood Urea Nitrogen 23 MG/DL Creatinine 0.94 MG/DL Random Glucose 280 MG/DL Total Protein 6.2 GM/DL Albumin 2.4 GM/DL Calcium Level 8.9 MG/DL Alkaline Phosphatase 67 U/L Aspartate Amino Transf (AST/SGOT) 34 U/L Alanine Aminotransferase (ALT/SGPT) 26 U/L Total Bilirubin 0.2 MG/DL Sodium Level 141 MEQ/L Potassium Level 4.1 MEQ/L Chloride Level 106 MEQ/L Carbon Dioxide Level 26.8 MEQ/L Anion Gap 8 MEQ/L Estimat Glomerular Filtration Rate 57 ML/MIN Iron Level 13 MCG/DL Total Iron Binding Capacity 297 MCG/DL Percent Iron Saturation 4.4 % Ferritin 68 NG/ML PHYSICAL EXAMINATION: GENERAL: Patient in no acute distress. HEENT: Extraocular movements grossly intact. Pupils reactive to light. No icterus. Oropharynx: Moist mucosa. No visible lesions. NECK: Supple, no adenopathy. LUNGS: Clear breath sounds. HEART: Regular S1, S2. I/ systolic ejection murmur at the left sternal border. ABDOMEN: Bowel sounds present, soft, nontender. EXTREMITIES: The right leg stump is wrapped in a surgical dressing. The left foot has healed excoriations at the lateral aspect of the foot near the fifth toe and also at the dorsal aspect of the third toe. There is no erythema and the skin is dry. SKIN: No diffuse rash. NEUROLOGIC: Nonfocal. PSYCHIATRIC: Calm and cooperative. IMPRESSION: 1. Infected wound of the right pdwpe-[id number] stump. MRSA. 2. The patient is status post incision and drainage and revision of r. stump. RECOMMENDATIONS: 1. Continue vancomycin intravenous until July 10, 2017. Orders written. 2. PICC line ordered for IV antibiotics 3. Case management notified to make arrangements for outpatient intravenous vancomycin. 4. Lab ordered for follow-up of vancomycin levels. Discussed with patient's son regarding the plans for treatment. William Holguin MD June 23, 2017 11:39
--- NOTE | 2017-06-23 11:54 | HHI.FF ---
Infusion Therapy Location of Infusion Therapy: Home Health Care IV Infusion Order Patient Information Patient Weight 65.8 kg Diagnosis: (1) Amputation stump infection Diagnosis MRSA Coded Allergies: Penicillins (Verified Allergy, Severe, RASH, ITCHING, 06/18/17) adhesive tape (Verified Allergy, Severe, Blisters, 06/19/17) nabumetone (Verified Allergy, Severe, Rash, 06/18/17) oxycodone (Verified Allergy, Severe, AGITATION, COMBATIVE, 06/18/17) tramadol (Verified Allergy, Severe, COMBATIVE, 06/18/17) Uncoded Allergies: PLASTIC TAPE (Allergy, Severe, BLISTERS, 06/17/17) Administer Medication Vancomycin q 24 hours 1250mg IV Stop Treatment: July 10, 2017 Additional Information Venous access: PICC Line Additional Instructions [x] Peripheral flush and dressing changes per protocol [x] Implanted port and central straight line press setter: * Implanted port: 10 ml Normal Saline followed by 5 ml Heparin 100 units/ml Heparin flush after each use and monthly to maintain. [] May leave port accessed during therapy. [] May leave peripheral site accessed for duration of therapy. [x] If patient has SOB or respiratory distress, check oxygen saturation. If less than 90% or clinical signs of respiratory distress, administer oxygen at 2 L/min. via nasal cannula and notify physician. [x] Anaphylaxis/Reaction orders: * Stop infusion. * Keep IV line open with saline flush. * Notify physician. * Monitor vital signs every 15 minutes until symptoms resolve. * Check Oxygen saturation; Oxygen at 2 L/min. via nasal cannula if less than 90% or clinical signs of respiratory distress. * Administer diphenhydramine (Benadryl) 25 mg IV STAT, (unless patient has received as pre-med). May repeat once, if necessary. * Solu-Cortef 250 mg IVP over 30-60 seconds, use 100 mg vials for each dissolution. * Epinephrine (1mg/1 ml) 0.3 mg subcutaneously or IVP now with any signs of respiratory distress. * Check with physician for new additional pre-med orders if patient is re- challenged or re-treated. [x] May remove PICC line when treatment complete, after confirming with Physician. [x] If the patient is admitted to the hospital, the ED, or transferred via EVAC , complete transfer form including medication reconciliation order sheet. Laboratory Tests Weekly Labs: BMP, CBC w/diff, Vancomycin Trough Additional Information Call with vancomycin level greater than 20 or creatinine greater than 2.0 Hold vancomycin if creatinine greater than 2.[address] Holguin . Fax number [phone]. William Holguin MD June 23, 2017 11:54
[2017-06-23 12:00] VITALS: BP 139/63; PULSE 79; RESP 18; TEMP 98; O2SAT 94
--- NOTE | 2017-06-23 13:33 | PD.OP ---
cc: Sana Graves MD Operative Report Date of Surgery: June 19, 2017 Preoperative Diagnosis: Right below knee amputation wound dehiscence with infection Postoperative Diagnosis: same Procedure: Right below-knee amputation irrigation and debridement Right below-knee amputation revision Application of incisional vac Anesthesia: General Surgeon: Sana Graves [employer] Principal(s): Luis E Varela Operation and Findings: EBL: 50cc Specimens: multiple cultures, pathology Complications: none Indications for procedure: Patient is a 81-year-old female who was previously treated by my partner, Dr. Ibarra, with right below-knee amputation for previous nonhealing leg wounds. 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 Back in February, patient underwent right below-knee amputation. Initially, patient was doing well however in May was found to have small wound dehiscence. Patient underwent irrigation and debridement with closure of wounds on June 09, [address] Ibarra. At that time cultures were taken which returned with MRSA. An attempt was made to get the patient started on IV antibiotics as an outpatient, however, patient presented to my office on June 17 with increasing wound dehiscence and drainage. Again, patient was found to have a wound dehiscence with infection of the right below-knee amputation stump. Recommendation for surgical intervention in the form of irrigation and debridement with revision of below-knee amputation and possible VAC application. Risks of surgery including but not limited to: Persistent infection, persistent nonhealing wound , possible need for further surgery including possible above-knee amputation, neurovascular injury, persistent knee pain and/or stiffness, persistent stump pain, and other unforeseen, occasions all discussed with the patient. At this time she has agreed to proceed with the above-mentioned procedure. Of note, patient continues to smoke despite extensive counseling and is currently smoking approximately 1 pack per day. Description of procedure: Patient was brought back to the operating room placed supine on operating room table with all bony prominences well-padded. General anesthesia then ensued. A tourniquet was placed on the upper thigh on the right side. Patient was prepped and draped in standard sterile fashion. A timeout was performed to identify the correct patient, side, site and procedure to be performed. Preoperative antibiotics were held in an attempt to obtain intraoperative cultures. I then turned my attention to the right below-knee amputation stump wound. This was approximately 5-6 cm in all directions. This was directly over the more lateral incision sites from her initial below-knee amputation. This did have a small amount of what appeared to be purulent drainage along with a foul odor. The tourniquet was then inflated to 250 mmHg. The rest of the amputation incision which was healed was then incised with sharp dissection through the skin and subcutaneous tissue. The muscular myodesis remained intact although the muscle did not appear highly viable. The muscle around the entire stump appeared brownish with minimal blood flow and very poor quality. Cultures were taken at this point including specimen for pathology. Antibiotics were then given. At this time, the myodesis was taken down with an attempt to preserve the remaining healthy tissue. There is no gross evidence of osteomyelitis. The stump was thoroughly irrigated with over 6 L of normal saline laden with gentamicin. Given the lack of skin and subcutaneous tissue for eventual closure , the below-knee amputation was revised with approximately 1 inch removed from both the tibia and the fibula. This was performed with a saw and finished with an osteotome. At this time, the nonviable-appearing muscle was then debrided and removed. Again, thorough irrigation was performed to remove all bone fragments and to try to prevent HO. At this time, the tourniquet was released to allow for hemostasis and also evaluation of blood flow for eventual healing. It was noted at this time that there was minimal blood flow to some of the remaining muscle and therefore this was then debrided further. At this point there was some healthy bleeding muscle in all areas. There was no grossly bleeding vessels. There was noted to be what appeared to be healthy bleeding skin edges. 3 small drill holes were then placed in the anterior aspect of the tibia to allow for myodesis of the remaining muscles. Vancomycin powder was then placed deep in the wound. #1 PDS suture was then utilized to myodese the remaining gastrocsoleus muscles to the tibia. A deep drain was placed to this myodesis. The fascia was then closed with #1 PDS sutures. The subcutaneous tissue was then closed with 2-0 PDS sutures. The skin was then closed with horizontal mattress sutures with nylon. At this point, given her poor vascular status, I elected to place an incisional VAC over the closed incision. Xeroform was first placed followed by the sponge over the Xeroform and finally Ioban over the sponge. This was placed a 75 mm of continuous VAC suction. A good seal was obtained. Sterile dressings were then applied over the stump wound. Patient was then awoken from general anesthesia without complication. Disposition: Patient will be nonweightbearing to the right below-knee stump with a knee immobilizer in place to prevent contractures. The incisional VAC will be kept in place for approximately 4 days with plan for removal on Friday. Patient will require IV antibiotics for infected stump wound. Again, patient was counseled on smoking cessation. Sana Graves MD June 23, 2017 13:33
--- NOTE | 2017-06-23 13:59 | RADRPT ---
EXAM DATE/TIME: 06/23/2017 13:31 [facility] COMPARISON: No previous studies available for comparison. INDICATIONS : PICC placement verification. MEDICAL HISTORY : None. SURGICAL HISTORY : None. ENCOUNTER: Initial ACUITY: 1 day PAIN SCORE: 0/10 LOCATION: Bilateral chest FINDINGS: A single view of the chest demonstrates the lungs to be symmetrically aerated without evidence of mas s, infiltrate or effusion. PICC line in good position. The cardiomediastinal contours are unremarka ble. Osseous structures are intact. CONCLUSION: PICC line in good position. Hesham Rizzo MD FACR on June 23, 2017 at 13:57 Board Certified Radiologist. This report was verified electronically.
[2017-06-23] MEDS ORDERED: SODIUM CHLORIDE 0.9% FLUSH 10 ML FLUSH IV FLUSH PRN (14:00)
[2017-06-23] MEDS ORDERED: VANCOMYCIN INJ 1,250 MG in SODIUM CHLOR 0.9% 250 ML INJ 250 ML IV SCH (14:00)
[2017-06-23 16:00] VITALS: BP 147/67; PULSE 83; RESP 18; TEMP 97.8; O2SAT 96
--- NOTE | 2017-06-23 17:22 | HHI.PR ---
Subjective Remarks Denies fevers, cp/sob. Stable vital signs. Denies diarrhea. Objective Vitals Vital Signs Date Time Temp Pulse Resp B/P (MAP) Pulse Ox O2 Delivery O2 Flow Rate FiO2 06/23/17 16:00 97.8 83 18 147/67 (93) 96 06/23/17 12:00 98.0 79 18 139/63 (88) 94 06/23/17 08:00 97.9 74 18 120/57 (78) 94 06/23/17 00:00 97.5 68 18 124/57 (79) 98 06/22/17 20:00 98.2 71 18 119/56 (77) 97 I/O 06/22/17 06/22/17 06/22/17 06/23/17 06/23/17 06/23/17 07:00 15:00 23:00 07:00 15:00 23:00 Intake Total 800 ml 700 ml 980 ml Output Total 5 ml 600 ml 1 ml Balance 795 ml 100 ml 979 ml Intake Oral 700 ml 480 ml IV Total 800 ml 500 ml Output Urine Total 600 ml 1 ml Stool Total 5 ml # Voids 5 # Bowel Movements 1 Result Diagram: 06/22/17 1230 06/22/17 1230 Imaging Last 72 hours Impressions Chest X-Ray 06/23/17 0000 Signed Impressions: Service Date/Time: Friday, June 23, 2017 13:31 - CONCLUSION: PICC line in good position. Hesham Rizzo MD FACR Objective Remarks GENERAL: This is a well-nourished, well-developed patient, in no apparent distress. SKIN: No rashes, ecchymoses or lesions. Cool and dry. HEAD: Atraumatic. Normocephalic. No temporal or scalp tenderness. EYES: Pupils equal round and reactive. Extraocular motions intact. No scleral icterus. No injection or drainage. ENT: Nose without bleeding, purulent drainage or septal hematoma. Throat without erythema, tonsillar hypertrophy or exudate. Uvula midline. Airway patent. NECK: Trachea midline. No JVD or lymphadenopathy. Supple, nontender, no meningeal signs. CARDIOVASCULAR: Regular rate and rhythm without murmurs, gallops, or rubs. RESPIRATORY: Clear to auscultation. Breath sounds equal bilaterally. No wheezes , rales, or rhonchi. GASTROINTESTINAL: Abdomen soft, non-tender, nondistended. No hepato-splenomegaly , or palpable masses. No guarding. MUSCULOSKELETAL: Right BKA covered by dressing which is C/D/I. Wound VAC is no longer in place. NEUROLOGICAL: Awake and alert. Cranial nerves II through XII intact. Motor and sensory grossly within normal limits. Five out of 5 muscle strength in all muscle groups. Normal speech. Urinary Catheter: No Vascular Central Line Catheter: Yes Date of Insertion: June 23, 2017 Line: PICC A/P Problem List: (1) Amputation stump infection ICD Code: T87.40 - Infection of amputation stump, unspecified extremity Plan: The patient has a right BKA infection with wound dehiscence. The patient status post right [id number] amputation irrigation and debridement, right below the knee amputation revision and application of incisional VAC. ID consulted. Continue IV antibiotics as per infectious disease. The patient currently on IV vancomycin. Pertinent cultures: The patient is growing MRSA on wound culture. 06/22 Dr Graves to evaluate wound on friday. Continue IV antibiotics as per ID recommendations. 06/23 dressing removed on wound VAC taken down. (2) Diabetes ICD Code: E11.9 - Type 2 diabetes mellitus without complications Plan: Monitor Accu-Cheks. Hold metformin while patient hospitalized. Check hemoglobin A1c if this is has not been done within the last 3 months. 06/22 hemoglobin A1c 7.1 diabetes is fairly well controlled. However blood sugars today are very and severely elevated in the 200s. Previously blood sugars were fairly well controlled. Placed on SSI with insulin NovoLog and monitor Accu-Cheks. 06/23 blood sugars improved. Discharge the patient back home on metformin. (3) HTN (hypertension) ICD Code: I10 - Essential (primary) hypertension Plan: Patient initially severely elevated. Continue outpatient home medications which include ramipril 20 mg p.o. daily. Monitor vital signs. 5 /6 blood pressure elevated in the 150-160 systolic. I will start the patient on amlodipine 5 mg p.o. daily. Continue ramipril 20 mg p.o. daily. 06/23 blood pressure much improved. Continue amlodipine and ramipril on discharge. (4) Hyperlipidemia ICD Code: E78.5 - Hyperlipidemia, unspecified Plan: Continue fenofibrate and rosuvastatin. (5) PVD (peripheral vascular disease) ICD Code: I73.9 - Peripheral vascular disease, unspecified Plan: On pentoxifylline. Continue Plavix. (6) Sepsis ICD Code: A41.9 - Sepsis, unspecified organism Plan: Patient meets sepsis criteria with low-grade fever and heart rate more than 90. Continue IV antibiotics as per ID recommendations. 5/6 sepsis clinically resolving. Continue IV antibiotics. /7 antibiotics as per ID recommendations. Patient will go home with a PICC line and IV antibiotics. Assessment and Plan DVT prophylaxis: Lovenox subcutaneously. Discharge Planning Patient cleared medically to be discharged. Problem Qualifiers (1) Diabetes: Qualified Codes: E11.52 - Type 2 diabetes mellitus with diabetic peripheral angiopathy with gangrene (2) HTN (hypertension): Qualified Codes: I10 - Essential (primary) hypertension (3) Hyperlipidemia: Qualified Codes: E78.5 - Hyperlipidemia, unspecified (4) Sepsis: Qualified Codes: A41.02 - Sepsis due to methicillin resistant Staphylococcus aureus Waylon Roberts MD June 23, 2017 17:22
--- NOTE | 2017-06-23 17:55 | HHI.FF ---
Face to Face Verification Diagnosis: (1) Diabetes (2) Hyperlipidemia (3) Sepsis (4) PVD (peripheral vascular disease) (5) HTN (hypertension) (6) Amputation stump infection Physical Therapy Order: Improve ambulation, Strength and gait training Home Health Nursing Order: Wound care and dressing changes Nursing assessment with vital signs IV medication administration Instructions: Apply Xeroform, 4 x 4, ABD, LAINA daily change I have seen patient Miriam Schmidt on 06/23/17. My clinical findings support the need for the requested home health care services because: Limited ability to care for self Infection w/ risk of complications I certify that my clinical findings support that this patient is homebound because: Unsafe to leave home unassisted Unable to use public transportation Waylon Roberts MD June 23, 2017 17:55
[2017-06-23] MEDS ORDERED: AMLO5 PO (17:56)
[2017-06-23] MEDS ORDERED: INSU1MIS15 (18:00)
[2017-06-23] MEDS ORDERED: GLUCKIT15 (18:00)
[2017-06-23] MEDS ORDERED: GLUCTES12 (18:00)
[2017-06-23] MEDS ORDERED: NOVOLOGP2 SQ (18:00)
[2017-06-23] MEDS ORDERED: LANCETS1 MI1 (18:00)
[2017-06-23] MEDS ORDERED: BIOM30MI (18:00)
[2017-06-24] MEDS ORDERED: SODIUM CHLORIDE 0.9% FLUSH 10 ML FLUSH IV FLUSH SCH (09:00)
[2017-06-25] MEDS ORDERED: PHARMACY ORDERED LAB ONE (13:45)
== END 2017-06-23 18:30 | disposition home health service (06) | DRG 474 ==
LOC: HSDI 10:17 → N06B 17:47 → N07B 06-20 18:17
PROVIDERS: ADMIT Orthopaedic Surgery Orthopaedic Surgery of the Spine; ATTEND Orthopaedic Surgery Orthopaedic Surgery of the Spine
PROC: 0Y6H0Z1 Detachment at Right Lower Leg, High, Open Approach (ICD-10-PCS; principal; 2017-06-19 13:33)
PROC: 02HV33Z Insertion of Infusion Device into Superior Vena Cava, Percutaneous Approach (ICD-10-PCS; 2017-06-23)
DX: T87.43 Infection of amputation stump, right lower extremity (principal); A41.02 Sepsis due to Methicillin resistant Staphylococcus aureus; E11.51 Type 2 diabetes mellitus with diabetic peripheral angiopathy without gangrene; J44.9 Chronic obstructive pulmonary disease, unspecified; Y83.5 Amputation of limb(s) as the cause of abnormal reaction of the patient, or of later complication, without mention of misadventure at the time of the procedure; T87.81 Dehiscence of amputation stump; I10 Essential (primary) hypertension; E78.5 Hyperlipidemia, unspecified; Z95.820 Peripheral vascular angioplasty status with implants and grafts; F17.210 Nicotine dependence, cigarettes, uncomplicated; E11.649 Type 2 diabetes mellitus with hypoglycemia without coma; E78.00 Pure hypercholesterolemia, unspecified; Z79.02 Long term (current) use of antithrombotics/antiplatelets
CPT/HCPCS: 36569; 71045; 76937; 80048; 80053; 80202; 82728; 82948; 83036; 83540; 83550; 83735; 84100; 85014; 85018; 85025; 85027; 86403; 87015; 87070; 87102; 87116; 87147; 87186; 87205; 87206; 88305; 88307; 88311; 94150; J0131; J1170; J1580; J1650; J1815; J1885; J2270; J2405; J2543; J3010; J3370; J7030; J7050; J7120